=== PATIENT | female | born 1935 | race Two or more races ===

== ENCOUNTER 2025-03-04 11:25 | Emergency (ER) | payer OTHER ==
[~2025-03-04] VITALS: Ht 157.5 cm; Wt 59.0 kg
[2025-03-04] MEDS ORDERED: SERTRALINE20 MG/1 ML PO (12:28)
[2025-03-04] MEDS ORDERED: BUSPIRONE HCL7.5 MG PO (12:28)
[2025-03-04] MEDS ORDERED: ALENDRONATE SOD70 MG PO (12:28)
[2025-03-04] MEDS ORDERED: 0.9 % SODIUM CHLORIDE 1,000 ML IV ONE (12:45)
[2025-03-04 13:03] LABS: BASO % 0.5 % (0.1-1.2); EOS # 0.21 (0.04-0.54); EOS % 2.2 % (0.7-7.0); LYMPH # 2.03 (1.18-3.74); LYMPH % 21.3 % (19.3-53.1); MEAN PLATELET VOLUME 9.60 fl (9.4-12.4); MONO # 0.80 (0.24-0.82); MONO % 8.4 % (4.7-12.5); NEUT # 6.39 (1.56-6.13); NEUT % 67.3 % (34.0-71.1); RED CELL DISTRIBUTION WIDTH 13.7 % (11.6-14.4)
[2025-03-04 13:35] LABS: INR 0.99
[2025-03-04 13:39] LABS: ALT/SGPT 25.0 U/L (12-78); AST/SGOT 25.0 U/L (15-37); BILIRUBIN TOTAL 0.25 mg/dL (0.3-1.2); BUN CREA RATIO 25.0 (7.0-25.0); CREATININE SERUM 0.65 mg/dL (0.55-1.02); GFR 85.82; GLOBULINA 4.4 G/DL (2.4-3.5); GLUCOSE FASTING 89.0 mg/dL (65-100); OSMOLALITY SERUM 287.0 MOSM/KG (275-295)
[2025-03-04 15:10] LABS: URINE APPEARANCE Clear; URINE BILIRRUBIN Negative (NEGATIVE); URINE BLOOD Negative; URINE COLOR Yellow; URINE GLUCOSE Negative (NEGATIVE); URINE KETONE Negative (NEGATIVE); URINE LEUKOCYTE Negative; URINE NITRATE Negative; URINE PROTEIN Negative (NEGATIVE); URINE UROBILINOGEN 0.2 E.U./dl
[2025-03-04 15:15] LABS: URINE BACTERIA 4.7 uL (0.0-1933); URINE RBC 8.2 uL (0.0-20.8); URINE WBC 1.9 uL (0.0-23.2)
[2025-03-04 15:20] LABS: URINE CAST 0.00 uL (0.0-1.40); URINE EPITHELIAL CELLS 1.2 uL (0.0-38.8)
[2025-03-04] MEDS ORDERED: POTASSIUM CHLORIDE 10 MEQ CAPSULE PO STA (18:57)
[2025-03-04] MEDS ORDERED: LACTULOSE 20 G/30 ML BLIST.PACK PO STA (18:58)
[2025-03-04] MEDS ORDERED: POLYETHYLENE GLYCOL 3350 17 GM BLIST.PACK PO STA (18:58)
[2025-03-04] MEDS ORDERED: MINERAL OIL 30 ML BLIST.PACK PO STA (18:58)
[2025-03-04] MEDS ORDERED: MIRALAX510 GM PO (19:54)
== END 2025-03-04 20:42 | disposition home or self-care (01) ==
LOC: ER 11:25
PROVIDERS: General Practice
DX: K62.3 Rectal prolapse (principal); K59.00 Constipation, unspecified; E87.6 Hypokalemia; K57.30 Diverticulosis of large intestine without perforation or abscess without bleeding; G30.9 Alzheimer's disease, unspecified; F02.80 Dementia in other diseases classified elsewhere, unspecified severity, without behavioral disturbance, psychotic disturbance, mood disturbance, and anxiety
CPT/HCPCS: 36415; 74177; 96365; 99283; J7030; Q9965

== ENCOUNTER 2025-03-18 19:57 | Emergency (ER) | payer OTHER ==
[~2025-03-18] VITALS: Ht 149.9 cm; Wt 51.3 kg
[~2025-03-18 19:57] MED LIST: ALENDRONATE SOD70 MG PO; BUSPIRONE HCL7.5 MG PO; MIRALAX510 GM PO; SERTRALINE20 MG/1 ML PO
[2025-03-18 20:02] VITALS: BP 149/83; O2SAT 100
[2025-03-18] MEDS ORDERED: ATIVAN0.5 M1 PO (20:05)
[2025-03-18] MEDS ORDERED: MEMANTINE H2 MG/1 ML PO (20:05)
[2025-03-18] MEDS ORDERED: PANTOPRAZOLE SODIUM 40 MG/VIAL VIAL IV ONE (21:00)
[2025-03-18] MEDS ORDERED: 0.9 % SODIUM CHLORIDE 500 ML IV SCH (21:00)
[2025-03-18 22:10] LABS: BASO % 0.3 % (0.1-1.2); EOS # 0.15 (0.04-0.54); EOS % 1.0 % (0.7-7.0); LYMPH # 1.90 (1.18-3.74); LYMPH % 12.7 % (19.3-53.1); MEAN PLATELET VOLUME 9.70 fl (9.4-12.4); MONO # 1.45 (0.24-0.82); MONO % 9.7 % (4.7-12.5); NEUT # 11.40 (1.56-6.13); NEUT % 75.9 % (34.0-71.1); RED CELL DISTRIBUTION WIDTH 14.1 % (11.6-14.4)
[2025-03-18 22:12] LABS: ERYTHROCYTE SEDIMENTATION RATE 63 mm/hr (0-30)
[2025-03-18 22:46] LABS: INR 1.00
[2025-03-18 22:50] LABS: ALT/SGPT 21.0 U/L (12-78); AST/SGOT 21.0 U/L (15-37); BILIRUBIN TOTAL 0.23 mg/dL (0.3-1.2); BUN CREA RATIO 18.0 (7.0-25.0); CREATININE SERUM 0.66 mg/dL (0.55-1.02); GFR 84.32; GLOBULINA 4.0 G/DL (2.4-3.5); GLUCOSE FASTING 135.0 mg/dL (65-100); OSMOLALITY SERUM 289.0 MOSM/KG (275-295)
[2025-03-19] MEDS ORDERED: METAMUCIL POWD575 G1 PO (02:17)
== END 2025-03-19 03:21 | disposition home or self-care (01) ==
LOC: ER 19:57
DX: K62.3 Rectal prolapse (principal); K62.89 Other specified diseases of anus and rectum; K62.5 Hemorrhage of anus and rectum
CPT/HCPCS: 36415; 96365; 96366; 99282; J3490; J7042

== ENCOUNTER 2025-03-22 15:20 | Inpatient (IN) | payer OTHER ==
[~2025-03-22] VITALS: Ht 152.4 cm; Wt 48.5 kg
[~2025-03-22 15:20] MED LIST changes: +ATIVAN0.5 M1 PO; +MEMANTINE H2 MG/1 ML PO; +METAMUCIL POWD575 G1 PO
--- NOTE | 2025-03-22 15:31 | NUR ---
SE RECIBE PACIENTE ALERTA Y ACTIVA EN COMPANIA DE FAMILIAR QUIEN REFIERE TRAER A PACIENTE A CAUSA DE UN PROLAPSO RECTAL Y [place]. SE MIDEN S/V Y SE UBICA.
[2025-03-22] MEDS ORDERED: CEFTRIAXONE SODIUM 2,000 MG in 0.9 % SODIUM CHLORIDE 100 ML IV ONE (17:15)
[2025-03-22] MEDS ORDERED: 0.9 % SODIUM CHLORIDE 1,000 ML IV SCH (17:15)
[2025-03-22] MEDS ORDERED: ONDANSETRON HCL 4 MG in 0.9 % SODIUM CHLORIDE 50 ML IV ONE (17:15)
[2025-03-22] MEDS ORDERED: ACETAMINOPHEN 500 MG GEL..CAP PO ONE ×2 (17:15→17:18)
[2025-03-22] MEDS ORDERED: FAMOtidine 10 MG/ML (4ML VIAL) IV PUSH ONE (17:15)
[2025-03-22] MEDS ORDERED: ONDANSETRON HCL 2 MG/ML VIAL ONE (17:18)
[2025-03-22] MEDS ORDERED: CEFTRIAXONE SODIUM 2,000 MG VIAL ONE (17:19)
[2025-03-22] MEDS ORDERED: FAMOTIDINE/PF 20 MG/2 ML VIAL ONE (17:19)
--- NOTE | 2025-03-22 18:12 | NUR ---
RN KIM EDUCA ACERCA DE TX ORDENADO, CANALIZA Y COLECTA MUESTRAS DE LABORATORIO MEDIANTE MEDIDAS ASEPTICAS. LUZ MARINA ENVASE DE [facility]. ADMINISTRA MEDICAMENTOS JASON ORDEN MEDICA Y MEDIANTE MEDIDAS ASEPTICAS.
[2025-03-22 18:34] LABS: BASO % 0.4 % (0.1-1.2); EOS # 0.29 (0.04-0.54); EOS % 2.4 % (0.7-7.0); LYMPH # 2.13 (1.18-3.74); LYMPH % 17.4 % (19.3-53.1); MEAN PLATELET VOLUME 9.40 fl (9.4-12.4); MONO # 0.88 (0.24-0.82); MONO % 7.2 % (4.7-12.5); NEUT # 8.88 (1.56-6.13); NEUT % 72.3 % (34.0-71.1); RED CELL DISTRIBUTION WIDTH 13.7 % (11.6-14.4)
[2025-03-22 18:43] LABS: ERYTHROCYTE SEDIMENTATION RATE 44 mm/hr (0-30)
[2025-03-22 18:59] LABS: INR 1.02
[2025-03-22 19:04] LABS: ALT/SGPT 23.0 U/L (12-78); AST/SGOT 28.0 U/L (15-37); BILIRUBIN TOTAL 0.38 mg/dL (0.3-1.2); BUN CREA RATIO 21.0 (7.0-25.0); CREATININE SERUM 0.52 mg/dL (0.55-1.02); GFR 111.03; GLOBULINA 3.9 G/DL (2.4-3.5); GLUCOSE FASTING 95.0 mg/dL (65-100); OSMOLALITY SERUM 286.0 MOSM/KG (275-295)
[2025-03-23 02:08] LABS: URINE APPEARANCE Clear; URINE BILIRRUBIN Negative (NEGATIVE); URINE BLOOD Negative; URINE COLOR Yellow; URINE GLUCOSE Negative (NEGATIVE); URINE KETONE 15 (NEGATIVE); URINE LEUKOCYTE Small; URINE NITRATE Negative; URINE PROTEIN Trace (NEGATIVE); URINE UROBILINOGEN 1.0 E.U./dl
[2025-03-23 02:11] LABS: URINE BACTERIA 41.9 uL (0.0-1933); URINE EPITHELIAL CELLS 21.8 uL (0.0-38.8); URINE RBC 22.7 uL (0.0-20.8); URINE WBC 136.7 uL (0.0-23.2)
[2025-03-23 02:43] LABS: URINE CAST 0.43 uL (0.0-1.40); URINE EPITHELIAL CELLS 0-4 /HPF
--- NOTE | 2025-03-23 08:56 | NUR ---
PACIENTE ALERTA Y ORIENTADA X3 EN CAMA A NIVEL DE PISO JUNTO CON BARRANDAS ELEVADAS. CANALIZADA CON #22 EN LT ARM, PATENTE, VICKI DE EDEMA Y ERITEMA Y BAJANDO 0.9NSS A 80ML/HR. PENDIENTE A RE EVALUACION MEDICA.
[2025-03-23] MEDS ORDERED: LORazepam 2 MG/ML VIAL ONE (10:13)
[2025-03-23] MEDS ORDERED: LORazepam 2 MG/ML VIAL IV ONE (10:15)
[2025-03-23] MEDS ORDERED: FAMOTIDINE/PF 20 MG in 0.9 % SODIUM CHLORIDE 8 ML IV PUSH SCH (10:28)
[2025-03-23] MEDS ORDERED: BUSPIRONE HCL 5 MG TABLET PO SCH (10:28)
[2025-03-23] MEDS ORDERED: MEMANTINE HCL 10 MG TABLET PO SCH (10:29)
[2025-03-23] MEDS ORDERED: ONDANSETRON HCL 4 MG in 0.9 % SODIUM CHLORIDE 50 ML IV PRN (10:30)
[2025-03-23] MEDS ORDERED: ACETAMINOPHEN 500 MG GEL..CAP PO PRN (10:30)
[2025-03-23] MEDS ORDERED: 0.9 % SODIUM CHLORIDE 1,000 ML IV SCH (10:30)
[2025-03-23] MEDS ORDERED: PIPERACILLIN/TAZOBACTAM SODIUM 3.375 GM in DEXTROSE 5 % IN WATER 100 ML IV SCH (12:00)
[2025-03-23] MEDS ORDERED: FAMOTIDINE/PF 20 MG/2 ML VIAL ONE (14:04)
[2025-03-23] MEDS ORDERED: PIPERACILLIN/TAZOBACTAM SODIUM 3.375 GM VIAL IV ONE (14:04)
[2025-03-23] MEDS ORDERED: ACETAMINOPHEN 500 MG GEL..CAP PO ONE (14:12)
[2025-03-23] MEDS ORDERED: DONEPEZIL HCL 10 MG TABLET PO SCH (17:00)
[2025-03-24 03:09] VITALS: BP 123/67; O2SAT 96
[2025-03-24 08:40] VITALS: BP 110/66; O2SAT 96
[2025-03-24] MEDS ORDERED: SERTRALINE HCL 50 MG TABLET PO SCH (09:00)
[2025-03-24] MEDS ORDERED: AMINO ACIDS/PROTEIN HYDROLYS 30 ML BLIST.PACK PO SCH (17:00)
[2025-03-24] MEDS ORDERED: LACTOBACILLUS ACIDOPHILUS 1 CAP CAP PO SCH (17:00)
[2025-03-24 19:13] VITALS: BP 131/78; O2SAT 95
[2025-03-25 01:21] VITALS: BP 138/69; O2SAT 95
[2025-03-25 07:06] LABS: BASO % 0.3 % (0.1-1.2); EOS # 0.14 (0.04-0.54); EOS % 1.3 % (0.7-7.0); LYMPH # 1.03 (1.18-3.74); LYMPH % 9.8 % (19.3-53.1); MEAN PLATELET VOLUME 10.30 fl (9.4-12.4); MONO # 0.98 (0.24-0.82); MONO % 9.3 % (4.7-12.5); NEUT # 8.33 (1.56-6.13); NEUT % 78.8 % (34.0-71.1); RED CELL DISTRIBUTION WIDTH 14.2 % (11.6-14.4)
[2025-03-25 07:29] LABS: ALT/SGPT 23.0 U/L (12-78); AST/SGOT 28.0 U/L (15-37); BILIRUBIN TOTAL 0.32 mg/dL (0.3-1.2); BUN CREA RATIO 25.0 (7.0-25.0); CREATININE SERUM 0.56 mg/dL (0.55-1.02); GFR 101.93; GLOBULINA 3.3 G/DL (2.4-3.5); GLUCOSE FASTING 87.0 mg/dL (65-100); OSMOLALITY SERUM 290.0 MOSM/KG (275-295)
[2025-03-25 09:26] VITALS: BP 115/68; O2SAT 95
[2025-03-25] MEDS ORDERED: MAGNESIUM SULFATE IN WATER 50 ML IV SCH (12:00)
[2025-03-25] MEDS ORDERED: POTASSIUM CHLORIDE IN WATER 40 MEQ/100 ML PIGGYBAG IV SCH (13:00)
[2025-03-25 13:56] LABS: ob POSITIVE (NEGATIVE)
[2025-03-25 16:56] VITALS: BP 137/75; O2SAT 96
[2025-03-26 02:45] VITALS: BP 112/68; O2SAT 96
[2025-03-26 09:09] VITALS: BP 105/60; O2SAT 96
[2025-03-26 19:27] VITALS: BP 160/70; O2SAT 98
[2025-03-26] MEDS ORDERED: POTASSIUM CHLORIDE IN WATER 40 MEQ/100 ML PIGGYBAG IV ONE (20:30)
[2025-03-27 02:40] VITALS: BP 129/63; O2SAT 97
[2025-03-27 06:48] LABS: BASO % 0.2 % (0.1-1.2); EOS # 0.26 (0.04-0.54); EOS % 2.7 % (0.7-7.0); LYMPH # 1.68 (1.18-3.74); LYMPH % 17.3 % (19.3-53.1); MEAN PLATELET VOLUME 10.50 fl (9.4-12.4); MONO # 0.86 (0.24-0.82); MONO % 8.8 % (4.7-12.5); NEUT # 6.86 (1.56-6.13); NEUT % 70.5 % (34.0-71.1); RED CELL DISTRIBUTION WIDTH 14.2 % (11.6-14.4)
[2025-03-27 08:29] VITALS: BP 95/54; O2SAT 96
[2025-03-27 09:51] LABS: ALT/SGPT 22.0 U/L (12-78); AST/SGOT 25.0 U/L (15-37); BILIRUBIN TOTAL 0.26 mg/dL (0.3-1.2); BUN CREA RATIO 13.0 (7.0-25.0); CREATININE SERUM 0.55 mg/dL (0.55-1.02); GFR 104.07; GLOBULINA 3.3 G/DL (2.4-3.5); GLUCOSE FASTING 79.0 mg/dL (65-100); OSMOLALITY SERUM 291.0 MOSM/KG (275-295)
== END 2025-03-27 16:00 | disposition home or self-care (01) | DRG 394 ==
LOC: ER 15:20 → MEDI 03-23 11:31 → SEC-K 03-23 11:31 → MEDI 03-23 19:30
PROVIDERS: General Practice; Internal Medicine Infectious Disease; ADMIT Internal Medicine; ATTEND Internal Medicine
PROC: BW21YZZ Computerized Tomography (CT Scan) of Abdomen and Pelvis using Other Contrast (ICD-10-PCS; principal; 2025-03-23)
DX: K62.3 Rectal prolapse (principal); F02.818 Dementia in other diseases classified elsewhere, unspecified severity, with other behavioral disturbance; N39.0 Urinary tract infection, site not specified; K62.5 Hemorrhage of anus and rectum; R41.82 Altered mental status, unspecified; R19.7 Diarrhea, unspecified; E87.6 Hypokalemia; G30.9 Alzheimer's disease, unspecified; I10 Essential (primary) hypertension; E78.5 Hyperlipidemia, unspecified